=== PATIENT | female | born 1945 | race Caucasian/White ===

== ENCOUNTER 2017-05-26 04:55 | Emergency (ER) | payer MEDICARE, OTHER ==
[2017-05-26] MEDS ORDERED: CLINDAMYCIN 150 MG CAPSULE PO STA (06:03)
[2017-05-26] MEDS ORDERED: DEXAMETHASONE 10 MG/ML VIAL PO STA (06:03)
[2017-05-26] MEDS ORDERED: CLINDAMYCIN 150 MG CAPSULE PO ONE (06:06)
[2017-05-26] MEDS ORDERED: CHERRY SYRUP 10 ML UDC PO ONE (06:06)
[2017-05-26] MEDS ORDERED: DEXAMETHASONE 10 MG/ML VIAL ONE (06:06)
== END 2017-05-26 06:17 | disposition home or self-care (01) ==
DX: J02.9 Acute pharyngitis, unspecified (principal); K21.9 Gastro-esophageal reflux disease without esophagitis
CPT/HCPCS: 87070; 87430; 99283; A9270

== ENCOUNTER 2024-07-11 22:42 | Outpatient (CLI) | payer MEDICARE, OTHER | END 2024-07-11 22:43 | disposition EMS.NT | LOC: EMS 22:42 | DX: I49.9 Cardiac arrhythmia, unspecified (principal) ==

== ENCOUNTER 2024-07-12 07:57 | Outpatient (CLI) | payer MEDICARE, OTHER | END 2024-07-12 23:59 | disposition EMS.NT | LOC: EMS 07:57 | DX: R00.1 Bradycardia, unspecified (principal); R42 Dizziness and giddiness ==